=== PATIENT | male | born 1975 | race Caucasian/White ===

== ENCOUNTER 2018-03-24 20:40 | Emergency (ER) | payer OTHER ==
[2018-03-24 21:00] VITALS: BP 111/69
--- NOTE | 2018-03-24 21:42 | UC ---
Back Pain HPI - HPI Summary HPI Summary: 42 y/o male presents to the urgent care c/o lower back pain radiating to his LF side since 03/21/2018 s/p jumping on a trampoline. Pt reports pain started after an hr later he was on the trampoline. Pain is 6/10 dull at rest and 8/10 sharp w/ movement. Pt has taking Tylenol Po , last dose about 3 hrs ago. Pt can walk w/o limping. Pt denies fever, saddle anesthesia, urinary or fecal incontinence, urinary symptoms, Numbness or tingling over the lower extremities , SOB, chest pain, abdominal pain, N/V/D - History of Current Complaint Chief Complaint: UCBackPain Stated Complaint: BACK PAIN Time Seen by Provider: 03/24/18 21:32 Hx Obtained From: Patient Onset/Duration: Gradual Onset, Lasting Days - 3 days, Still Present, Worse Since - today Timing: Intermittent Severity Initially: Mild Severity Currently: Moderate Pain Intensity: 8 - w/ movement Pain Scale Used: 0-10 Numeric Back Pain: Is Discrete @ - lower back, Radiates To - left side of hip Aggravating Factor(s): Movement, Lifting, Bending Alleviating Factor(s): Rest, OTC Meds Associated Signs And Symptoms: Positive: Negative. Negative: Swelling, Redness , Bruising, Fever, Numbness, Tingling, Abdominal Pain, Flank Pain, Bladder Incontinence, Bowel Incontinence, Weight Loss, Pain with Weight Bearing - Risk Factors AAA Risk Factors: Negative TAD Risk Factors: Negative Cauda Equina Risk Factors: Negative Epidural Abscess Risk Factors: Negative - Allergies/Home Medications Allergies/Adverse Reactions: Allergies Allergy/AdvReac Type Severity Reaction Status Date / Time No Known Allergies Allergy Verified 03/24/18 21:00 PMH/Surg Hx/FS Hx/Imm Hx Previously Healthy: Yes - Pt denies PMHX - Surgical History Surgical History: Yes Surgery Procedure, Year, and Place: arthoscopy of the knee for a medial meniscal tear - Family History Known Family History: Positive: Cardiac Disease, Diabetes - Social History Occupation: Employed Full-time Lives: With Family Alcohol Use: Daily Alcohol Amount: 2-3 12 OUNCE BEERS/DAY Substance Use Type: None Smoking Status (MU): Current Every Day Smoker Type: Cigarettes Amount Used/How Often: <1 PPD Have You Smoked in the Last Year: Yes Household Exposure Type: Cigarettes - Immunization History Most Recent Tetanus Shot: up to date Review of Systems Constitutional: Negative Skin: Negative Eyes: Negative ENT: Negative Respiratory: Negative Cardiovascular: Negative Gastrointestinal: Negative Genitourinary: Negative Motor: Negative Neurovascular: Negative Musculoskeletal: Decreased ROM - lower back, Other: - lower back pain radiating to the left hip Neurological: Negative Psychological: Negative Is Patient Immunocompromised?: No All Other Systems Reviewed And Are Negative: Yes Physical Exam - Summary Physical Exam Summary: Vital Signs Reviewed: Yes Appearance: Well-Appearing, Well-Nourished, Thin male sitting in the examining table w/o any apparent distress. Eyes: Positive: Conjunctiva Clear - PERRLA, EOMI. ENT: Positive: Normal ENT inspection, Hearing grossly normal, Pharynx normal, TMs normal, Uvula midline Neck: Positive: Supple, Nontender, No Lymphadenopathy Respiratory: Positive: Chest non-tender, Lungs clear, Normal breath sounds, No respiratory distress Cardiovascular: Positive: RRR, No Murmur, Pulses Normal, Brisk Capillary Refill Abdomen Description: Positive: Nontender, No Organomegaly, Soft. Negative: CVA Tenderness (R), CVA Tenderness (L) Bowel Sounds: Positive: Present Musculoskeletal: Positive: Strength Intact, Other: - BACK: Patient walked into the urgent care room with symmetric ambulation, No signs of limping, antalgic, able to bear weight. No signs of trauma, No masses palpated. Point tenderness at the level of L5-S1 w/ paraspinal muscle tenderness and spasm on the same level, No CVAT, no flank ecchymosis . No sacroiliac notch tenderness, No saddle anesthesia.ROM: limited due to pain, Straight Leg Raise: negative. Patellar reflexes: brisk, symmetric Muscle strength lower extremities. Dorsiflexion/ plantar flexion of ankles. Heel/ toe walk. Lower extremities: Femoral, popliteal , posterior tibial, and dorsalis pedis pulses WNL. Pt refuse rectal exam Neurological: Positive: Alert, Muscle Tone Normal Psychological Exam: Normal Skin Exam: Normal Triage Information Reviewed: Yes Vital Signs: Initial Vital Signs Temp 97.9 F 03/24/18 20:56 Pulse 84 03/24/18 20:56 Resp 16 03/24/18 20:56 BP 111/69 03/24/18 20:56 Pulse Ox 97 03/24/18 20:56 Back Pain Course/Dx - Course Course Of Treatment: 42 y/o male presents to the urgent care c/o lower back pain radiating to his LF side since 03/21/2018 s/p jumping on a trampoline. Pt reports pain started after an hr later he was on the trampoline. Pain is 6/10 dull at rest and 8/10 sharp w/ movement. Pt has taking Tylenol Po , last dose about 3 hrs ago. Pt can walk w/o limping. Pt denies fever, saddle anesthesia, urinary or fecal incontinence, urinary symptoms, Numbness or tingling over the lower extremities, SOB, chest pain, abdominal pain, N/V/D. Hx obtained. Pt w/ probably a back strain, specially back spasm on the left side on examination. . Pt Rx Prednisone PO, Flexeril and Narpoxen PO. First dose given at the clinic tonight. Flexeril Po dispense hoem for Pt to take at home since he is driving. Rx sent to pharmacy. Patient was instructed to the f/u [facility] orthopedic in 1 week if symptoms do not improve or worsen. Patient understands and agrees. Patient is able to ambulate freely w/o aid or limp. Plan of care was discussed with the patient and patient understands and agrees. All questions were answered at patient satisfaction. Pt left clinic hemodynamically stable. - Differential Dx/Diagnosis Differential Diagnosis/HQI/PQRI: Arthritis, Compressive Cord Syndrome, Herniated Disc, Strain, Sprain Provider Diagnoses: 1- Lower back strain. 2-Back spasm Discharge - Sign-Out/Discharge Documenting (check all that apply): Discharge/Admit/Transfer - D/C home - Discharge Plan Condition: Stable Disposition: HOME Prescriptions: Cyclobenzaprine TAB* [Flexeril 10 MG TAB*] 10 mg PO TID PRN #21 tab PRN Reason: Spasms - Back Naproxen TAB* [Naprosyn 250 mg TAB*] 250 mg PO Q8H PRN #30 tab PRN Reason: back pain predniSONE TAB* [Deltasone TAB*] 20 mg PO DAILY #8 tab Patient Education Materials: Low Back Strain (ED), Muscle Spasm (ED) Forms: *Work Release Referrals: [facility] [place] [facility]ERR[facility] [Outside] - 1 Week Gretel Cassidy MD [Medical Doctor] - 1 Week Additional Instructions: 1- Please take Naproxen PO as directed after meals for pain. Take Prednisone PO as directed to alleviate symptoms starting tomorrow. First dose given at the clinic tonight. 2- Take Flexeril PO as directed for muscle spasm. Please do not drive while taking the medication. 3- Wear a back support. Avoid strenuous exercise of heavy lifting. 4- Please follow up with Orthopedic Dr Cassidy or your PCP in 1 week if not improvement of symptoms, for further management. - Billing Disposition and Condition Condition: STABLE Disposition: HOME
[2018-03-24] MEDS ORDERED: Naproxen TAB* 250 MG PO ONE (21:43)
[2018-03-24] MEDS ORDERED: predniSONE TAB* 20 MG PO ONE (21:43)
[2018-03-24] MEDS ORDERED: Cyclobenzaprine TAB* 10 MG PO ONE (21:49)
== END 2018-03-24 22:07 | disposition home or self-care (01) ==
LOC: UCEAST 20:40
DX: S39.012A Strain of muscle, fascia and tendon of lower back, initial encounter (principal); X58.XXXA Exposure to other specified factors, initial encounter; Y93.44 Activity, trampolining; Y92.9 Unspecified place or not applicable; F17.210 Nicotine dependence, cigarettes, uncomplicated
CPT/HCPCS: 99213; A9270-GY; G0463; J7512

== ENCOUNTER 2018-04-03 20:45 | Emergency (ER) | payer OTHER ==
[2018-04-03 20:59] VITALS: BP 118/73
[2018-04-03] MEDS ORDERED: Lidocaine 2% PF * 5 ML VIAL INJ ONE (21:03)
[2018-04-03] MEDS ORDERED: cefTRIAXone VIAL(*) 1,000 MG VIAL IVPB ONE (21:20)
[2018-04-03] MEDS ORDERED: cefTRIAXone VIAL(*) 1,000 MG VIAL IM ONE (21:20)
[2018-04-03] MEDS ORDERED: Lidocaine 1% MPF* 2 ML VIAL INJ ONE (21:20)
--- NOTE | 2018-04-03 21:46 | ED ---
Skin Complaint - HPI Summary HPI Summary: 42 yo WM c/o left medial elbow skin infection that started with a "pimple" a week ago, has applied warm compresses and drained some purulent d/c, has a scab over the drain scab - History of Current Complaint Chief Complaint: UCSkin Time Seen by Provider: 04/03/18 21:04 Stated Complaint: L ELBOW INJURY Hx Obtained From: Patient Skin Exposure Onset/Duration: Days Ago Timing: Lasting Days Onset Severity: Moderate Current Severity: Severe Pain Intensity: 2 Skin Location: Arm - left - Allergy/Home Medications Allergies/Adverse Reactions: Allergies Allergy/AdvReac Type Severity Reaction Status Date / Time No Known Allergies Allergy Verified 04/03/18 21:22 Home Medications: Home Medications Cyclobenzaprine TAB* [Flexeril 10 MG TAB*] 1 tab PO TID PRN 04/03/18 [History Confirmed 04/03/18] Naproxen Sodium [Naproxen 220 mg] 1 tab PO BID PRN 04/03/18 [History Confirmed 04/03/18] PMH/Surg Hx/FS Hx/Imm Hx Previously Healthy: Yes Endocrine/Hematology History: Denies: Hx Diabetes, Hx Thyroid Disease Cardiovascular History: Denies: Hx Hypertension Respiratory History: Denies: Hx Asthma, Hx Chronic Obstructive Pulmonary Disease (COPD) GI History: Denies: Hx Ulcer - Surgical History Surgery Procedure, Year, and Place: arthoscopy of the knee for a medial meniscal tear Infectious Disease History: Yes Infectious Disease History: Reports: 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 Denies: Hx Clostridium Difficile, Hx Hepatitis, Hx Human Immunodeficiency Virus (HIV), Hx Shingles, Hx Tuberculosis, Hx Known/Suspected VRE, Hx Known/ Suspected VRSA, History Other Infectious Disease, Traveled Outside the [place] in Last 30 Days - Family History Known Family History: Positive: None, Cardiac Disease, Diabetes - Social History Alcohol Use: Daily Alcohol Amount: 2-3 12 OUNCE BEERS/DAY Substance Use Type: Reports: None Smoking Status (MU): Heavy Every Day Tobacco Smoker Type: Cigarettes Amount Used/How Often: 1 PPD 20+ YEARS Have You Smoked in the Last Year: Yes Review of Systems Constitutional: Negative Positive: Chills Eyes: Negative ENT: Negative Cardiovascular: Negative Respiratory: Negative Gastrointestinal: Negative Genitourinary: Negative Musculoskeletal: Negative Skin: Other - left elbow skin infection All Other Systems Reviewed And Are Negative: Yes Physical Exam Triage Information Reviewed: Yes Vital Signs On Initial Exam: Initial Vitals Temp Pulse Resp BP Pulse Ox 36.7 C 95 16 118/73 96 04/03/18 20:53 04/03/18 20:53 04/03/18 20:53 04/03/18 20:53 04/03/18 20:53 Vital Signs Reviewed: Yes Appearance: Positive: Well-Appearing Skin: Positive: Warm, Dry, Tender, Weeping Skin/Lesions - scab with oozing surrounding purulent drainage size about 2x2cm Head/Face: Positive: Normal Head/Face Inspection Eyes: Positive: Normal ENT: Positive: Normal ENT inspection Neck: Positive: Supple Respiratory/Lung Sounds: Positive: Clear to Auscultation Male Genital Exam: Positive: Erythema Neurological: Positive: Normal Psychiatric: Positive: Normal Diagnostics - Vital Signs Vital Signs Temp Pulse Resp BP Pulse Ox 04/03/18 20:53 36.7 C 95 16 118/73 96 - Laboratory Lab Statement: Any lab studies that have been ordered have been reviewed, and results considered in the medical decision making process. Course/Dx - Course Course Of Treatment: expressed much purulent drainage via manual decompression, IM rocephin 2g for tonight, PO clindamycin for MRSA coverage - Diagnoses Provider Diagnoses: Cellulitis of left elbow, Abscess, elbow Discharge - Sign-Out/Discharge Documenting (check all that apply): Discharge/Admit/Transfer - Discharge Plan Condition: Stable Disposition: HOME Prescriptions: Clindamycin HCl 300 mg PO QID 10 Days #40 capsule Patient Education Materials: Cellulitis (ED), Abscess (ED) Referrals: No Primary Care Phys,NOPCP [Primary Care Provider] - Additional Instructions: return to clinic in 2 days for wound check - Billing Disposition and Condition Condition: STABLE Disposition: HOME
--- OUTSIDE RECORDS SUMMARY | 2018-04-03 22:12 | XMS REPORT ---
:1975 External Reference #:[id number] Author Organization [facility] Address [address] [address] Phone [phone] Care Team Providers Name Role Phone Patient's Choice Primary Care Physician Unavailable Payers Type Date Identification Numbers Payment Provider Subscriber Commercial Policy Number: [id number] [employer] Gaudencio Velez PayID: [id number] [address] [place] [address] Workers Effective: Policy Number: Carolin Velez Compensation 2016 [id number] [place] Onset: 2016 PayID: [id number] [address] [place] [address] Problems Description No Information Family History Date Family Member(s) Problem(s) Comments General Diabetes General Heart Disease General Stroke Social History Type Date Description Comments Lives With Occupation Currently Working ETOH Use Currently consumes alcohol Smoking Patient is a current smoker, smokes every day Exercise Type/Frequency Exercises regularly Allergies, Adverse Reactions, Alerts Date Description Reaction Status Severity Comments 08/18/2016 NKDA active Medications Medication Date Status Form Strength Qnty SIG Indications Ordering Provider Naproxen Active Tablets 500mg 60tabs 1 tablet S46.912A Yash F 016 with Juan, food by mouth twice a day Cyclobenzaprine Active Unknown HCL 000 Vital Signs Date Vital Result Comment 03/29/2018 Height 68.75 inches 5'8.75" Weight 147.00 lb Heart Rate 81 /min BP Systolic 120 mmHg BP Diastolic 76 mmHg Respiratory Rate 18 /min Body Temperature 97.7 F Pain Level 9 BMI (Body Mass Index) 21.9 kg/m2 08/18/2016 Height 68.75 inches 5'8.75" Weight 146.00 lb Pain Level 3 BMI (Body Mass Index) 21.7 kg/m2 Results Description No Information Procedures Description No Information Encounters Type Date Location Provider CPT E/M Dx Office Visit 08/18/2016 Orthopedic Services Yash Martinez, [address] S46.912A 1:20p Of Ismael AC M75.42 S46.912A S46.912A Plan of Care 03/29/2018 - Gretel Cassidy M.D.M54.42 Lumbago with sciatica, left sideNew Xrays: SP Lumbarsacral 4+ VWSFollow up:Follow up: With neurosurgery if not improving within 6 weeks. Go to ER if develop symptoms of numbness, incontinence, or difficulty walking.
== END 2018-04-03 21:37 | disposition home or self-care (01) ==
LOC: UCEAST 20:45
DX: L02.414 Cutaneous abscess of left upper limb (principal); L03.114 Cellulitis of left upper limb; F17.210 Nicotine dependence, cigarettes, uncomplicated
CPT/HCPCS: 96372; 99212; G0463; J0696

== ENCOUNTER 2018-04-05 11:18 | Emergency (ER) | payer OTHER ==
[2018-04-05 11:29] VITALS: BP 107/76
--- NOTE | 2018-04-05 12:17 | UC ---
Gian Gross Gabriel, scribed for Zulay Velasquez DO on 04/05/18 at 1140 . Skin Complaint HPI - HPI Summary HPI Summary: This patient is a 42 year old M [place] [facility] of left elbow abscess that he was seen for two days ago. The patient rates the pain 2/10 in severity. Patient reports decreased swelling and erythema to the left elbow. He states it has been draining on its own. Patient denies limited Rom on the elbow. Pt was out of town yesterday so he just picked up his clinda and began it today. He states it started as a small pimple grew last week and began painful and larger. Pt has no other complaints today. - History of Current Complaint Chief Complaint: UCWounds Stated Complaint: ELBOW PAIN Hx Obtained From: Patient Onset/Duration: Lasting Days, Still Present Timing: Constant Onset Severity: Moderate Current Severity: Mild Pain Intensity: 2 Pain Scale Used: 0-10 Numeric Character: Redness, Painful Associated Signs & Symptoms: Positive: Negative - decreased ROM - Allergy/Home Medications Allergies/Adverse Reactions: Allergies Allergy/AdvReac Type Severity Reaction Status Date / Time No Known Allergies Allergy Verified 04/05/18 11:24 Review of Systems Constitutional: Negative - fever Skin: Other - decreased swelling and erythema to the left elbow Motor: Negative - negative decreased ROM All Other Systems Reviewed And Are Negative: Yes PMH/Surg Hx/FS Hx/Imm Hx Endocrine History: Other Other Endocrine History: MRSA Neurological History: Other Other Neurological History: chronic back pain Other History Of: Negative For: HIV - Surgical History Surgical History: Yes Surgery Procedure, Year, and Place: arthoscopy of the knee for a medial meniscal tear\\. Fatty deposit repair - Family History Known Family History: Positive: Cardiac Disease, Diabetes - Social History Occupation: Employed Full-time Lives: With Family - Alcohol Use: Daily Alcohol Amount: 2-3 12 OUNCE BEERS/DAY Substance Use Type: None Smoking Status (MU): Heavy Every Day Tobacco Smoker Type: Cigarettes Amount Used/How Often: 1 PPD 20+ YEARS Have You Smoked in the Last Year: Yes Household Exposure Type: Cigarettes - Immunization History Most Recent Tetanus Shot: up to date Physical Exam - Summary Physical Exam Summary: Appearance: Well-Appearing, No Pain Distress, Well-Nourished Eyes: conjunctiva clear, no discharge ENT: Hearing grossly normal, no muffled/hoarse voice. Hearing grossly normal, normal voice. Neck: Normal, Supple Respiratory/Lung Sounds: Lungs clear, Normal breath sounds, No respiratory distress, No accessory muscle use Cardiovascular: RRR, No murmur Musculoskeletal: Normal Neurological: Alert, muscle tone normal Psychiatric:Normal, age appropriate behavior Skin: there is 4cm open lesion draining on the left medial elbow Triage Information Reviewed: Yes Vital Signs: Initial Vital Signs Temp 98.3 F 04/05/18 11:25 Pulse 73 04/05/18 11:25 Resp 16 04/05/18 11:25 BP 107/76 04/05/18 11:25 Pulse Ox 98 04/05/18 11:25 Vital Signs Reviewed: Yes Course/Dx - Course Course Of Treatment: This patient is a 42 year old M [place] [facility] [place] of left elbow abscess that he was seen for two days ago. The patient rates the pain 2/10 in severity. Patient reports decreased swelling and erythema to the left elbow. He states it has been draining on its own. Patient denies limited Rom on the elbow. Pt was out of town yesterday so he just picked up his clinda and began it today. He states it started as a small pimple grew last week and began painful and larger. Pt has no other complaints today. Hx MRSA. Patient will be discharged and follow up from PCP. The patient is agreeable with this plan. Medications reviewed. - Diagnoses Provider Diagnoses: abscess Discharge - Sign-Out/Discharge Documenting (check all that apply): Discharge/Admit/Transfer - Discharge Plan Condition: Stable Disposition: HOME Patient Education Materials: Abscess (ED) Referrals: No Primary Care Phys,NOPCP [Primary Care Provider] - 2 Days (Follow up in 2 days for re-evaluation. This follow up visit is important, we want to know that you are improving. If you can not get in with your PCP, return here for re -evaluation. ) Additional Instructions: CONTINUE CLINDAMYCIN DIRECTED. ANTIBIOTIC THERAPY: You have been given an antibiotic prescription. It's important that you take all the medication, unless instructed otherwise by your physician. Failure to complete the entire course can result in relapse of your condition. Common side effects of antibiotics include nausea, intestinal cramping, or diarrhea. Women may develop vaginal yeast infections, and babies can get yeast (thrush) in the mouth following the use of antibiotics. Contact your physician if you develop significant side effects from this medication. Allergy to this antibiotic can result in hives, wheezing, faintness, or itching. If symptoms of allergy occur, stop the medication and call the doctor. ANYTIME YOU TAKE AN ANTIBIOTIC, IT IS IMPORTANT TO REPLENISH THE BODY'S SUPPLY OF "GOOD BACTERIA." YOU CAN GET GOOD BACTERIA FROM HIGH QUALITY CULTURED FOODS SUCH LOCAL YOGURT, SOUR KRAUT, MARCUS DANIELLA, NATURALLY FERMENTED PICKLES AND PROBIOTIC DRINKS. YOU CAN ALSO GET GOOD BACTERIA FROM A PROBIOTIC SUPPLEMENT. If you develop red streaking, fever, chills, worsening pain, nausea, vomiting, or expanding redness please report to the emergency room immediately. If you are unable to get into a primary care providers office in two days, please return to the urgent care in two days to have the wound reevaluated. FOLLOW-UP CARE: You should establish with a private physician for follow-up care IN 2 DAYS. If you are unable to get a timely appointment, or if you are worsening, call us or return for re-evaluation. An additional resource available to assist in finding the appropriate physician for your health care needs is the Physician Referral Center. You may contact them by calling [phone]. Follow up in 2 days for re-evaluation. This follow up visit is important, we want to know that you are improving. If you can not get in with your PCP, return here for re-evaluation. The documentation as recorded by the Gian tavarez Gabriel accurately reflects the service I personally performed and the decisions made by me, Zulay Velasquez DO.
--- NOTE | 2018-04-07 10:37 | UC ---
- Progress Note Progress Note: wound culture + MRSA await sensitivity on Clinda - no change Patty 04/07/2018 Discharge - Sign-Out/Discharge Documenting (check all that apply): Post-Discharge Follow Up - Discharge Plan Condition: Stable Disposition: HOME Patient Education Materials: Abscess (ED) Referrals: No Primary Care Phys,NOPCP [Primary Care Provider] - 2 Days (Follow up in 2 days for re-evaluation. This follow up visit is important, we want to know that you are improving. If you can not get in with your PCP, return here for re -evaluation. ) Additional Instructions: CONTINUE CLINDAMYCIN DIRECTED. ANTIBIOTIC THERAPY: You have been given an antibiotic prescription. It's important that you take all the medication, unless instructed otherwise by your physician. Failure to complete the entire course can result in relapse of your condition. Common side effects of antibiotics include nausea, intestinal cramping, or diarrhea. Women may develop vaginal yeast infections, and babies can get yeast (thrush) in the mouth following the use of antibiotics. Contact your physician if you develop significant side effects from this medication. Allergy to this antibiotic can result in hives, wheezing, faintness, or itching. If symptoms of allergy occur, stop the medication and call the doctor. ANYTIME YOU TAKE AN ANTIBIOTIC, IT IS IMPORTANT TO REPLENISH THE BODY'S SUPPLY OF "GOOD BACTERIA." YOU CAN GET GOOD BACTERIA FROM HIGH QUALITY CULTURED FOODS SUCH LOCAL YOGURT, SOUR KRAUT, MARCUS DANIELLA, NATURALLY FERMENTED PICKLES AND PROBIOTIC DRINKS. YOU CAN ALSO GET GOOD BACTERIA FROM A PROBIOTIC SUPPLEMENT. If you develop red streaking, fever, chills, worsening pain, nausea, vomiting, or expanding redness please report to the emergency room immediately. If you are unable to get into a primary care providers office in two days, please return to the urgent care in two days to have the wound reevaluated. FOLLOW-UP CARE: You should establish with a private physician for follow-up care IN 2 DAYS. If you are unable to get a timely appointment, or if you are worsening, call us or return for re-evaluation. An additional resource available to assist in finding the appropriate physician for your health care needs is the Physician Referral Center. You may contact them by calling [phone]. Follow up in 2 days for re-evaluation. This follow up visit is important, we want to know that you are improving. If you can not get in with your PCP, return here for re-evaluation. - Billing Disposition and Condition Condition: STABLE Disposition: HOME
== END 2018-04-05 12:24 | disposition home or self-care (01) ==
LOC: UCEAST 11:18
DX: L02.414 Cutaneous abscess of left upper limb (principal); B95.62 Methicillin resistant Staphylococcus aureus infection as the cause of diseases classified elsewhere; F17.210 Nicotine dependence, cigarettes, uncomplicated
CPT/HCPCS: 87070; 87077; 87186; 87205; 87640; 87641; 99212; G0463

== ENCOUNTER 2018-04-13 16:15 | Emergency (ER) | payer OTHER ==
--- OUTSIDE RECORDS SUMMARY | 2018-04-13 16:27 | XMS REPORT ---
:1975 External Reference #:[id number] Author Organization [email or web address] Address [address] [address] Phone [phone] Care Team Providers Name Role Phone Patient's Choice Primary Care Physician Unavailable Payers Type Date Identification Numbers Payment Provider Subscriber Commercial Policy Number: [id number] [employer] Gaudencio Velez PayID: [id number] [address] [place] [address] Workers Effective: Policy Number: Carolin Velez Compensation 2016 [id number] [place] Onset: 2016 PayID: [id number] [address] [place] [address] Problems Date Description Provider Status Onset: 04/13/2018 Scoliosis deformity of spine Vassiladriel Miguel MD Active Family History Date Family Member(s) Problem(s) Comments General Diabetes General Heart Disease General Stroke Siblings 3 Social History Type Date Description Comments Lives With Occupation Currently Working Occupation Technical Account Manager ETOH Use Currently consumes alcohol ETOH Use consumes 2-3 beers per day Smoking Patient is a current smoker, smokes every day Smoking Heavy tobacco smoker (more than 10 cigarettes/day) Daily Caffeine Consumes on average 1 pot of regular coffee per day Exercise Type/Frequency Exercises regularly Allergies, Adverse Reactions, Alerts Date Description Reaction Status Severity Comments 08/18/2016 NKDA active Medications Medication Date Status Form Strength Qnty SIG Indications Ordering Provider Naproxen 08/19/ Active Tablets 500mg 60tabs 1 tablet S46.912A Yash F 2015 with food Juan, by mouth twice a day Clindamycin HCL / Active Capsules 300mg take 1 Unknown 0000 capsule by mouth four times a day Cyclobenzaprine / Active Tablets 10mg take 1 Unknown HCL 0000 tablet by mouth three times a day if needed for back Spasms Cyclobenzaprine / Hx Unknown HCL 0000 - 2017 Vital Signs Date Vital Result Comment 04/13/2018 Height 68.75 inches 5'8.75" Weight 147.00 lb BP Systolic Sitting 112 mmHg BP Diastolic Sitting 80 mmHg Pain Level 2 BMI (Body Mass Index) 21.9 kg/m2 03/29/2018 Height 68.75 inches 5'8.75" Weight 147.00 [...] Location Provider CPT E/M Dx Office Visit 03/29/2018 [facility] Gretel Cassidy M.D. 49709 M54.42 1:15p Of [facility] Office Visit 08/18/2016 [facility] Yash Martinez, 34817 S46.912A 1:20p Of [place] AC M75.42 S46.912A S46.912A Plan of Care 04/13/2018 - Chavo Miguel, MDM47.26 Other spondylosis with radiculopathy , lumbar regionFollow up:Rv prnM41.9 Scoliosis, unspecified
[2018-04-13 16:30] VITALS: BP 113/78
--- NOTE | 2018-04-13 16:49 | UC ---
Skin Complaint HPI - HPI Summary HPI Summary: Patient here for third follow-up on left medial elbow abscess. Patient states wound is improving. Denies fever, purulent discharge, decreased range of motion , increase in pain, increase in erythema or warmth to area. States he is compliant with antibiotics. - History of Current Complaint Chief Complaint: UCSkin Time Seen by Provider: 04/13/18 16:36 Stated Complaint: RECHECK ELBOW COMPLAINT Hx Obtained From: Patient Onset/Duration: Gradual Onset Current Severity: None Pain Intensity: 0 Pain Scale Used: 0-10 Numeric - Allergy/Home Medications Allergies/Adverse Reactions: Allergies Allergy/AdvReac Type Severity Reaction Status Date / Time No Known Allergies Allergy Verified 04/13/18 16:30 Review of Systems Constitutional: Negative Skin: Other Eyes: Negative ENT: Negative Respiratory: Negative Cardiovascular: Negative Gastrointestinal: Negative Genitourinary: Negative Motor: Negative Neurovascular: Negative Musculoskeletal: Negative Neurological: Negative Psychological: Negative All Other Systems Reviewed And Are Negative: Yes PMH/Surg Hx/FS Hx/Imm Hx Other History Of: Negative For: HIV - Surgical History Surgical History: Yes Surgery Procedure, Year, and Place: arthoscopy of the knee for a medial meniscal tear\. Fatty deposit repair - Family History Known Family History: Positive: None, Cardiac Disease, Diabetes - Social History Alcohol Use: Daily Alcohol Amount: 2-3 12 OUNCE BEERS/DAY Substance Use Type: None Smoking Status (MU): Heavy Every Day Tobacco Smoker Type: Cigarettes Amount Used/How Often: 1 PPD 20+ YEARS Have You Smoked in the Last Year: Yes Household Exposure Type: Cigarettes - Immunization History Most Recent Tetanus Shot: up to date Physical Exam - Summary Physical Exam Summary: Wound to left medial elbow is clean dry and intact, appears to be healing well. No purulent discharge, no foul odor, minimal localized erythema. Full range of motion of left elbow. Triage Information Reviewed: Yes Appearance: Well-Appearing Vital Signs: Initial Vital Signs Temp 98.2 F 04/13/18 16:26 Pulse 77 04/13/18 16:26 Resp 16 04/13/18 16:26 BP 113/78 04/13/18 16:26 Pulse Ox 100 04/13/18 16:26 Vital Signs Reviewed: Yes Eye Exam: Normal ENT Exam: Normal Neck exam: Normal Respiratory Exam: Normal Cardiovascular Exam: Normal Abdominal Exam: Normal Musculoskeletal Exam: Normal Neurological Exam: Normal Psychological Exam: Normal Skin: Positive: Other Course/Dx - Course Course Of Treatment: History of abscess on the medial left elbow. History of I& D here and this is second follow-up. Wound CDI, appears to be healing well. No purulent drainage no foul odor. Patient has been compliant with antibiotics and will continue to finish course of antibiotics. Advised patient to return in one week for follow-up or sooner for any concerning symptoms. - Diagnoses Provider Diagnoses: Wound recheck Discharge - Sign-Out/Discharge Documenting (check all that apply): Discharge/Admit/Transfer - Discharge Plan Condition: Stable Disposition: HOME Patient Education Materials: Cellulitis (ED), Abscess (ED), Abscess Follow-up ( ED) Referrals: No Primary Care Phys,NOPCP [Primary Care Provider] - Additional Instructions: Follow-up in one week for wound recheck. Continue to take antibiotics as directed. Return here for any new or concerning symptoms - Billing Disposition and Condition Condition: STABLE Disposition: HOME
== END 2018-04-13 17:00 | disposition home or self-care (01) ==
LOC: UCEAST 16:15
DX: L02.414 Cutaneous abscess of left upper limb (principal); F17.210 Nicotine dependence, cigarettes, uncomplicated
CPT/HCPCS: 99212; G0463

== ENCOUNTER 2019-05-25 20:42 | Emergency (ER) | payer OTHER ==
--- NOTE | 2019-05-25 21:18 | ED ---
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- --1.5 cm laceration atop of right foot, n/m/c intact distally---scant amount of oozing blood - History of Current Complaint Chief Complaint: laceration right foot Stated Complaint: LAC TO TOP OF RT FOOT PER PT Time Seen by Provider: 05/25/19 21:16 Mechanism of Injury: Sharp/Blunt Trauma Onset/Duration: Sudden Onset, Lasting Hours - 2 Aggravating: Nothing Alleviating: Nothing Timing: Constant Pain Intensity: 9 Pain Scale Used: 0-10 Numeric Associated Signs & Symptoms: Negative - Allergy/Home Medications Allergies/Adverse Reactions: Allergies Allergy/AdvReac Type Severity Reaction Status Date / Time No Known Allergies Allergy Verified 05/25/19 20:45 PMH/Surg Hx/FS Hx/Imm Hx Previously Healthy: Yes Endocrine/Hematology History: Denies: Hx Diabetes, Hx Thyroid Disease Cardiovascular History: Denies: Hx Hypertension Respiratory History: Denies: Hx Asthma, Hx Chronic Obstructive Pulmonary Disease (COPD) GI History: Denies: Hx Ulcer - Surgical History Surgery Procedure, Year, and Place: arthoscopy of the knee for a medial meniscal tear\. Fatty deposit repair - Immunization History Date of Tetanus Vaccine: unsure Immunizations Up to Date: Unable to Obtain/Confirm Infectious Disease History: Yes Infectious Disease History: Reports: Hx of Known/Suspected MRSA Denies: Hx Clostridium Difficile, Hx Hepatitis, Hx Human Immunodeficiency Virus (HIV), Hx Shingles, Hx Tuberculosis, Hx Known/Suspected VRE, Hx Known/ Suspected VRSA, History Other Infectious Disease, Traveled Outside the [place] in Last 30 Days - Family History Known Family History: Positive: None, Cardiac Disease, Diabetes - Social History Occupation: Employed Full-time Lives: With Family Alcohol Use: Daily Alcohol Amount: 2-3 12 OUNCE BEERS/DAY Substance Use Type: Reports: None Smoking Status (MU): Heavy Every Day Tobacco Smoker Type: Cigarettes Amount Used/How Often: 1 PPD 20+ YEARS Have You Smoked in the Last Year: Yes Review of Systems Constitutional: Negative Eyes: Negative ENT: Negative Cardiovascular: Negative Respiratory: Negative Gastrointestinal: Negative Genitourinary: Negative Musculoskeletal: Negative Positive: Other - 1.5 cm laceration top of right foot Neurological: Negative Psychological: Normal All Other Systems Reviewed And Are Negative: No Physical Exam Triage Information Reviewed: Yes Vital Signs On Initial Exam: Initial Vitals Temp Pulse Resp BP Pulse Ox 98.4 F 78 16 140/88 97 05/25/19 20:43 05/25/19 20:43 05/25/19 20:43 05/25/19 20:43 05/25/19 20:43 Vital Signs Reviewed: Yes Appearance: Positive: Well-Appearing, No Pain Distress, Well-Nourished Skin: Positive: Warm, Skin Color Reflects Adequate Perfusion, Dry Head/Face: Positive: Normal Head/Face Inspection Eyes: Positive: Normal, EOMI, Conjunctiva Clear ENT: Positive: Normal ENT inspection, Hearing grossly normal. Negative: Trismus , Muffled voice, Hoarse voice Neck: Positive: Supple, Nontender Respiratory/Lung Sounds: Positive: Breath Sounds Present Cardiovascular: Positive: RRR, Pulses are Symmetrical in both Upper and Lower Extremities Musculoskeletal: Positive: Normal, Strength/ROM Intact Neurological: Positive: Normal, Sensory/Motor Intact, Alert, Oriented to Person Place, Time, CN Intact II-III Psychiatric: Positive: Normal AVPU Assessment: Alert - [place] Coma Scale Best Eye Response: 4 - Spontaneous Best Motor Response: 6 - Obeys Commands Best Verbal Response: 5 - Oriented Coma Scale Total: 15 Procedures - Laceration/Wound Repair 1 Location: lower extremity - top of right foot Description: Linear Anesthesia: Local, 1.0% - 5cc Length, Depth and Shape: 1.5 cm long 3-4 mm wide Betadine Prep?: Yes Irrigated w/ Saline (ccs): 250 Laceration/Wound Explored: clean Closure: Single Layer Suture Type: Nylon Number of Sutures: 4 - number 5.0 Layer Closure?: No Sterile Dressing Applied?: Yes Diagnostics - Vital Signs Vital Signs Temp Pulse Resp BP Pulse Ox 05/25/19 20:43 98.4 F 78 16 140/88 97 - Laboratory Lab Statement: Any lab studies that have been ordered have been reviewed, and results considered in the medical decision making process. Re-Evaluation - Re-Evaluation First Eval Change: Improved - tolerated well wound well approximated n/m/c intact before and after suture-- Laceration Repair Course/Dx - Course Assessment/Plan: up date tetanus, post op shoe, dsd, daily wound care return in 10 days for suture removal--off work and elevate foot for next 2 days - Clinical Impression Provider Diagnoses: Laceration of right foot excluding toes without complication, Immunization, tetanus-diphtheria Discharge - Sign-Out/Discharge Documenting (check all that apply): Patient Departure Patient Received Moderate/Deep Sedation with Procedure: No - Discharge Plan Condition: Stable Disposition: HOME Patient Education Materials: Care For Your Stitches (ED), Laceration (ED) Forms: *Work Release Referrals: [facility] [Outside] - If Needed Additional Instructions: Sutures will be removed in 10 days observe 2 times a day for signs/symptoms of infection - Billing Disposition and Condition Condition: STABLE Disposition: Home - Attestation Statements Provider Attestation: the patient was seen by the midlevel provider, it was determined by them that it was not necessary for me to see the patient thus the patient was not presented to me, I was available for consult during the patient's visit in the ED. I did not establish and patient-physician relationship. The chart however has been reviewed and I am signing in an administrative capacity.
[2019-05-25] MEDS ORDERED: Lidocaine/Epineph/Tetraca GEL* 3 ML GEL IN SYR TOPICAL ONE (21:25)
[2019-05-25] MEDS ORDERED: Tetan/Diph/Pertus SYR(Tdap)* 0.5 ML SYR(BOOSTRIX) use SYR IM ONE (21:27)
[2019-05-25 22:57] VITALS: BP 117/78
== END 2019-05-25 22:52 | disposition home or self-care (01) ==
LOC: ED 20:42
DX: S91.311A Laceration without foreign body, right foot, initial encounter (principal); Z23 Encounter for immunization; F17.210 Nicotine dependence, cigarettes, uncomplicated; W26.0XXA Contact with knife, initial encounter
CPT/HCPCS: 12001; 90471; 90715; 99283; A9270-GY

== ENCOUNTER 2019-07-15 10:43 | Emergency (ER) | payer OTHER ==
--- NOTE | 2019-07-15 11:32 | ED ---
HPI Chest Pain - HPI Summary HPI Summary: 43 year old M brought in by ambulance to [facility] complains of right-sided chest tightness started at 07:45 today while sitting down smoking. Patient states that the pain has resovled now rated 0/10 currently in severity. Symptoms aggravated by nothing. Symptoms alleviated by nothing. Patient denies nausea, vomiting, shortness of breath, cough. He denies cardiac hx. He is not taking medication for diabetes, HTN, hypercholesterolemia. He drinks alcohol. - History of Current Complaint Chief Complaint: EDChestPainROMI Time Seen by Provider: 07/15/19 11:16 Hx Obtained From: Patient Onset/Duration: Resolved Timing: Constant Current Severity: None Pain Intensity: 0 Pain Scale Used: 0-10 Numeric Aggravating Factor(s): Nothing Alleviating Factor(s): Nothing Associated Signs and Symptoms: Positive: Negative - nausea, vomiting, shortness of breath, cough - Allergy/Home Medications Allergies/Adverse Reactions: Allergies Allergy/AdvReac Type Severity Reaction Status Date / Time No Known Allergies Allergy Verified 07/15/19 10:57 Home Medications: Home Medications NK [No Home Medications Reported] 07/15/19 [History Confirmed 07/15/19] PMH/Surg Hx/FS Hx/Imm Hx Endocrine/Hematology History: Denies: Hx Diabetes, Hx Thyroid Disease Cardiovascular History: Denies: Hx Hypercholesterolemia, Hx Hypertension Respiratory History: Denies: Hx Asthma, Hx Chronic Obstructive Pulmonary Disease (COPD) GI History: Denies: Hx Ulcer - Surgical History Surgery Procedure, Year, and Place: arthoscopy of the knee for a medial meniscal tear. Fatty deposit repair - Immunization History Date of Tetanus Vaccine: unsure Infectious Disease History: No Infectious Disease History: Reports: Hx of Known/Suspected MRSA Denies: Hx Clostridium Difficile, Hx Hepatitis, Hx Human Immunodeficiency Virus (HIV), Hx Shingles, Hx Tuberculosis, Hx Known/Suspected VRE, Hx Known/ Suspected VRSA, History Other Infectious Disease, Traveled Outside the [place] in Last 30 Days - Family History Known Family History: Positive: Cardiac Disease, Diabetes - Social History Alcohol Use: Daily Alcohol Amount: 2-3 12 OUNCE BEERS/DAY Hx Substance Use: No Substance Use Type: Reports: None Hx Tobacco Use: Yes Smoking Status (MU): Heavy Every Day Tobacco Smoker Type: Cigarettes Amount Used/How Often: 1 PPD 20+ YEARS Have You Smoked in the Last Year: Yes Review of Systems Positive: Chest Pain Negative: Shortness Of Breath, Cough Negative: Vomiting, Nausea All Other Systems Reviewed And Are Negative: Yes Physical Exam - Summary Physical Exam Summary: VITAL SIGNS: Reviewed. GENERAL: Patient is a well-developed and nourished MALE who is lying comfortable in the stretcher. Patient is not in any acute respiratory distress. HEAD AND FACE: No signs of trauma. No ecchymosis, hematomas or skull depressions. No sinus tenderness. EYES: PERRLA, EOMI x 2, No injected conjunctiva, no nystagmus. EARS: Hearing grossly intact. Ear canals and tympanic membranes are within normal limits. MOUTH: Oropharynx within normal limits. NECK: Supple, trachea is midline, no adenopathy, no JVD, no carotid bruit, no c- spine tenderness, neck with full ROM. CHEST: Symmetric, no tenderness at palpation. LUNGS: Clear to auscultation bilaterally. No wheezing or crackles. CVS: Regular rate and rhythm, S1 and S2 present, no murmurs or gallops appreciated. ABDOMEN: Soft, non-tender. No signs of distention. No rebound, no guarding, and no masses palpated. Bowel sounds are normal. EXTREMITIES: FROM in all major joints, no edema, no cyanosis or clubbing. NEURO: Alert and oriented x 3. No acute neurological deficits. Speech is normal and follows commands. SKIN: Dry and warm. Triage Information Reviewed: Yes Vital Signs On Initial Exam: Initial Vitals Temp Pulse Resp BP Pulse Ox 97.8 F 78 22 124/82 99 07/15/19 10:49 07/15/19 10:49 07/15/19 10:49 07/15/19 10:49 07/15/19 10:49 Vital Signs Reviewed: Yes Diagnostics - Vital Signs Vital Signs Temp Pulse Resp BP Pulse Ox 07/15/19 10:49 97.8 F 78 22 124/82 99 - Laboratory Result Diagrams: 07/15/19 12:29 07/15/19 12:29 Lab Statement: Any lab studies that have been ordered have been reviewed, and results considered in the medical decision making process. - Radiology Chest x-ray Radiology Interpretation Completed By: Radiologist Summary of Radiographic Findings: No acute cardiopulmonary process by radiograph. ED physician has reviewed this report. - EKG 1213 Cardiac Rate: NL - 70 BPM EKG Rhythm: Sinus Rhythm Summary of EKG Findings: Sinus rhythm [address] elevations with an incomplete RBBB Chest Pain Course/Dx - Course Assessment/Plan: 43 year old M brought in by ambulance to [facility] complains of right-sided chest tightness started at 07:45 today while sitting down smoking. Patient states that the pain has resolved now rated 0/10 currently in severity. Symptoms aggravated by nothing. Symptoms alleviated by nothing. Patient denies nausea, vomiting, shortness of breath, cough. He denies cardiac hx. He is not taking medication for diabetes, HTN, hypercholesterolemia. He drinks alcohol. Blood work without any significant abnormality. First troponin is 0.00. EKG shows a normal sinus rhythm without any ST elevations. Chest x-ray impression: No acute cardiopulmonary disease. Second troponin is also 0.00. Therefore, I have no suspicion for acute coronary syndrome. The patient will be discharged home with follow-up with primary care physician. Patient is hemodynamically stable alert and oriented 3. - Diagnoses Provider Diagnoses: Atypical chest pain Discharge - Sign-Out/Discharge Documenting (check all that apply): Patient Departure - Discharge Patient Received Moderate/Deep Sedation with Procedure: No - Discharge Plan Condition: Stable Disposition: HOME Patient Education Materials: Chest Pain (ED) Referrals: [facility] [Outside] - 3 Days Additional Instructions: Follow up with your primary care provider in 3 days. Return to the Emergency Department for new or worsening symptoms. - Billing Disposition and Condition Condition: STABLE Disposition: Home - Attestation Statements Document Initiated by Irineo: Yes Documenting Scribe: Ellie Restrepo Provider For Whom Irineo is Documenting (Include Credential): Derrick De Jesus MD Scribe Attestation: Ellie Gross, scribed for Derrick De Jesus MD on 07/15/19 at 1851. Scribe Documentation Reviewed: Yes Provider Attestation: The documentation as recorded by the Ellie tavarez accurately reflects the service I personally performed and the decisions made by me, Derrick De Jesus MD Status of Scribe Document: Viewed
[2019-07-15 12:40] LABS: ABS Eosinophils 0.1 10^3/ul (0-0.6); ABS Monocytes 0.3 10^3/ul (0-0.8); ABS Neutrophils 3.5 10^3/ul (1.5-7.7); Eosinophil % 1.6 %; Hematocrit 44 % (42-52); Hemoglobin 15.5 g/dL (14.0-18.0); Lymphocyte % 20.4 %; Mean Corpuscular HGB Conc 35 g/dL (31-36); Mean Corpuscular Hemoglobin 34 pg (27-31); Mean Corpuscular Volume 96 fL (80-94); Mean Platelet Volume 6.8 fL (7.4-10.4); Nucleated Red Blood Cells % 0.1; Platelet Count 249 10^3/uL (150-450); Red Blood Count 4.57 10^6 /uL (4.18-5.48); Red Cell Distribution Width 14 % (10-15); White Blood Count 4.9 10^3/uL (3.5-10.8)
[2019-07-15 13:01] LABS: Albumin/Globulin Ratio 1.6 (1-3); BUN/Creatinine Ratio 14.6 (8-20); Calcium 9.2 mg/dL (8.6-10.3); EGFR African American 122.9 (>60); EGFR Non-African American 101.6 (>60); Globulin 2.5 g/dL (2-4); Magnesium 2.1 mg/dL (1.9-2.7); Potassium 4.1 mmol/L (3.5-5.0); Total Bilirubin 0.7 mg/dL (0.2-1.0); Total Protein 6.5 g/dL (6.4-8.9)
[2019-07-15 13:04] LABS: CKMB ng/mL 1.2 ng/mL (0.6-6.3)
[2019-07-15 13:21] LABS: TSH (Thyroid Stimulating Horm) 1.34 mcIU/mL (0.34-5.60)
[2019-07-15 15:28] VITALS: BP 125/80
== END 2019-07-15 15:27 | disposition home or self-care (01) ==
LOC: ED 10:43
DX: R07.89 Other chest pain (principal); F17.210 Nicotine dependence, cigarettes, uncomplicated
CPT/HCPCS: 36415; 71045; 80053; 82550; 82553; 83605; 83735; 83880; 84443; 84484; 85025; 93005; 99283